=== PATIENT | female | born 2000 | race Caucasian/White ===

== ENCOUNTER 2022-05-07 07:38 | Emergency (ER) | payer MEDICAID ==
[2022-05-07 08:04] VITALS: BP 127/71
--- NOTE | 2022-05-07 09:06 | ED Physician Documentation ---
PD HPI UPPER EXT INJURY - Stated complaint Stated Complaint: FINGER LAC - Chief complaint Chief Complaint: Laceration - History obtained from History obtained from: Patient - History of Present Illness Location: Left, Finger (little finger tip) Type of injury: Laceration (she was cutting food with a knife last evening and cut a small avulsion of skin at tip (not nailbed). It bled awhile and seemed to stop after pressure direclty. It started bleeding again this morning after removing bandage.) Where injury occurred: Home Timing - onset: Yesterday (last evening at dinnertime.) Timing - details: Abrupt onset, Still present, Waxing and waning (it stoped bleeding for awhile and then startes again.) Worsened by: Palpating. No: Moving Associated symptoms: No: Weakness, Numbness Similar symptoms before: Has not had sx before Review of Systems Skin: reports: Laceration (s). denies: Abrasion (s) Neurologic: denies: Focal weakness, Numbness PD PAST MEDICAL HISTORY - Past Medical History Past Medical History: No - Allergies Allergies/Adverse Reactions: Allergies Allergy/AdvReac Type Severity Reaction Status Date / Time Penicillins Allergy Anaphylaxis Verified 05/07/22 08:04 PD ED PE NORMAL - Vitals Vital signs reviewed: Yes - General General: Alert and oriented X 3, No acute distress, Well developed/nourished - Derm Derm: Normal color, Warm and dry - Extremities Extremities: Other (left little finger tip volar to the nailbed with 1 cm diameter avulsion just to fatty tissue layer in the center, with small vessel oozing ongoing bleeding. no FB noted. ) - Neuro Neuro: No motor deficit, No sensory deficit Results - Vitals Vitals: Vital Signs - 24 hr 05/07/22 08:02 Temperature 36.8 C Heart Rate 78 Respiratory 16 Rate Blood Pressure 127/71 O2 Saturation 100 Oxygen O2 Source Room air Procedures - General procedure General procedure: the wound was still having ongoing capillary bleeding despite bandaging (bleeding through snug wrap). Injected locally with lido and then battery cautery used to cauterize the area. Bleeding stopped. Vaseline gauze and then pressure derssing applied. PD MEDICAL DECISION MAKING - ED course Complexity details: considered differential, d/w patient Departure - Departure Disposition: 01 Home, Self Care Clinical Impression: Avulsion of finger tip Qualifiers: Encounter type: initial encounter Qualified Code(s): S61.209A - Unspecified open wound of unspecified finger without damage to nail, initial encounter Condition: Stable Record reviewed to determine appropriate education?: Yes Instructions: ED Avulsion Dermal Comments: Keep the dressing on the finger through the day today. This evening you should be able to take it off and start doing regular wound care with cleaning soap and water and applying ointment and Band-Aid. The bleeding should be mainly stopped at this point. Return if bleeding again through the dressing. This should heal in well without really leaving any scarring given the size of it. Tylenol ibuprofen if needed for pains. Recheck if signs of infection develop. Discharge Date/Time: 05/07/22 09:48
[2022-05-07] MEDS ORDERED: lidocaine 1% 20 ML MDV SUBQ ONE (09:17)
== END 2022-05-07 09:48 | disposition home or self-care (01) ==
LOC: ED 07:38
DX: S61.217A Laceration without foreign body of left little finger without damage to nail, initial encounter (principal); W26.0XXA Contact with knife, initial encounter; Y93.G1 Activity, food preparation and clean up
CPT/HCPCS: 96372; 99282; 99283

== ENCOUNTER 2022-07-05 09:29 | Outpatient (CLI) | payer MEDICAID ==
[2022-07-05 09:46] LABS: BASOPHILS % (AUTO) 0.5 %; EOSINOPHILS % (AUTO) 0.3 %; HCT - HEMATOCRIT 40.8 % (37.0-47.0); LYMPHOCYTES % (AUTO) 25.4 %; MEAN CORPUSCULAR HEMOGLOBIN 28.3 pg (27.0-31.0); MEAN CORPUSCULAR HGB CONC 31.9 g/dL (32.0-36.0); MEAN CORPUSCULAR VOLUME 88.7 fL (81.0-99.0); MEAN PLATELET VOLUME 9.6 fL (7.9-10.8); MONOCYTES # (AUTO) 0.5 10^3/uL (0.0-1.0); MONOCYTES % (AUTO) 6.4 %; NEUTROPHILS # (AUTO) 5.2 10^3/uL (1.5-6.6); NEUTROPHILS % (AUTO) 67.1 %; PLT - PLATELET COUNT 279 10^3/uL (130-450); RED CELL DISTRIBUTION WIDTH 12.3 % (12.0-15.0); WHITE BLOOD COUNT 7.8 x10^3/uL (4.8-10.8)
[2022-07-05 09:47] LABS: BILIRUBIN,URINE NEGATIVE (NEGATIVE); GLUCOSE, URINE (UA) NEGATIVE (NEGATIVE); KETONES,URINE (UA) NEGATIVE (NEGATIVE); LEUKOCYTE ESTERASE, URINE MODERATE (NEGATIVE); NITRITE,URINE NEGATIVE (NEGATIVE); OCCULT BLOOD,URINE TRACE-INTA (NEGATIVE); PROTEIN,URINE NEGATIVE (NEGATIVE); UROBILINOGEN,URINE 0.2 (NORMAL) E.U./dL (NORMAL)
[2022-07-05 09:48] LABS: CLARITY,URINE HAZY (CLEAR)
[2022-07-05 09:54] LABS: BACTERIA,URINE Few /HPF (None Seen); RBC,URINE 0-5 /HPF (0-5); SQUAMOUS EPITHELIAL CELL,UR FEW Squamous (<= Few); WBC CLUMPS,URINE PRESENT; WBC,URINE >25 /HPF (0-5)
[2022-07-05 09:58] LABS: ALBUMIN 4.4 g/dL (3.2-5.5); ALBUMIN/GLOBULIN RATIO 1.2 (1.0-2.2); BILIRUBIN,TOTAL 0.6 mg/dL (0.2-1.0); CALCIUM 8.9 mg/dL (8.5-10.3); CREATININE 0.6 mg/dL (0.4-1.0); POTASSIUM 3.5 mmol/L (3.5-5.0)
[2022-07-05 10:15] LABS: THYROID STIMULATING HORMONE 3.7 uIU/mL (0.34-5.60)
== END 2022-07-05 09:30 | disposition home or self-care (01) ==
LOC: LAB 09:29
PROVIDERS: ATTEND Physician Assistant
DX: R10.9 Unspecified abdominal pain (principal); G43.909 Migraine, unspecified, not intractable, without status migrainosus; Z13.29 Encounter for screening for other suspected endocrine disorder; I73.00 Raynaud's syndrome without gangrene
CPT/HCPCS: 36415; 80053; 81001; 81599; 84443; 85025; 86038; 86225; 86235; 87086

== ENCOUNTER 2022-07-16 16:54 | Outpatient (CLI) | payer MEDICAID ==
[~2022-07-16 16:54] MED LIST: GADOBUTROL 7.5 MMOL/7.5 ML VIAL ONE
[2022-07-16] MEDS ORDERED: GADOBUTROL 7.5 MMOL/7.5 ML VIAL IVP ONE (17:46)
--- NOTE | 2022-07-17 08:43 | MRI Report ---
PROCEDURE: BRAIN W/WO INDICATIONS: HEADACHE CONTRAST: gadavist 5.4ml TECHNIQUE: Noncontrast axial T1 spin echo, axial T2 fast spin echo, sagittal and axial FLAIR, coronal T2 fast sp in echo, axial gradient echo, axial diffusion and ADC through the brain. After the administration of contrast, axial and coronal T1 spin echo with fat saturation through the brain. COMPARISON: None. FINDINGS: Image quality: Excellent. CSF spaces: Basal cisterns are patent. There is a nonenhancing CSF intensity focus at the anterior a spect of the left temporal lobe measuring roughly 25 mm transverse. Ventricles are normal in size and shape. Brain: No midline shift. No intracranial bleeds or masses. No abnormal intracranial enhancement. There is cerebral volume loss for age. There is periventricular white matter chronic small vessel is chemic change. The brainstem appears normal. Diffusion-weighted images demonstrate no acute ischemi c insults. No chronic ischemic insults. Normal intravascular flow voids are present. Skull and face: Calvarial marrow is normal in signal. Orbits appear normal. Sinuses: Mild mucosal thickening within the bilateral ethmoid and maxillary sinuses. Mastoids clear. IMPRESSION: 1. No acute process. 2. Sinus disease. 3. No recent infarct. 4. Left middle cranial fossa arachnoid cyst. Reviewed by: Bob Connell MD on 07/17/2022 8:42 AM [facility] Approved by: Bob Connell MD on 07/17/2022 8:42 AM [facility] Station ID: [id number]
== END 2022-07-16 16:55 | disposition home or self-care (01) ==
LOC: DI 16:54
PROVIDERS: ATTEND Physician Assistant
DX: J32.9 Chronic sinusitis, unspecified (principal); G93.0 Cerebral cysts
CPT/HCPCS: 70553; A9585